=== PATIENT | female | born 1940 | race Two or more races ===

== ENCOUNTER 2019-05-15 06:06 | Day surgery (SDC) | payer OTHER ==
[~2019-05-15 06:06] MED LIST: ALENDRONATE SOD10 MG PO; ARIMIDEX PO; HYZAAR 100-12.1 EACH PO; MICROZIDE12.5 MG PO; SINGULAIR10 MG PO; ZOCOR20 MG PO
== END 2019-05-15 21:45 | disposition home or self-care (01) ==
LOC: CIR.AMB 06:06
DX: D05.11 Intraductal carcinoma in situ of right breast (principal); D05.12 Intraductal carcinoma in situ of left breast